=== PATIENT | male | born 1965 | race Two or more races ===

== ENCOUNTER 2017-01-11 18:31 | Emergency (ER) | payer BC, OTHER ==
[~2017-01-11] VITALS: Ht 175.3 cm; Wt 80.7 kg
[2017-01-11] MEDS ORDERED: NEOMYCIN-BACITRACIN-POLYM UNITDOSE PKG TOP OINT TOP ONE (20:06)
[2017-01-11] MEDS ORDERED: TETANUS-DIPTH-ACEL PERTUSSIS 0.5ML SYRG IM ONE ×2 (20:17→20:30)
[2017-01-11 20:55] VITALS: BP 167/86
== END 2017-01-11 20:58 | disposition home or self-care (01) ==
LOC: ER 18:40
DX: S61.011A Laceration without foreign body of right thumb without damage to nail, initial encounter (principal); W26.9XXA Contact with unspecified sharp object(s), initial encounter; Y93.89 Activity, other specified; Y99.8 Other external cause status; Y92.89 Other specified places as the place of occurrence of the external cause
CPT/HCPCS: 12002; 90471; 90715